=== PATIENT | male | born 1990 | race Asian ===

== ENCOUNTER 2017-01-27 01:50 | Emergency (ER) | payer OTHER ==
[~2017-01-27] VITALS: Ht 167.6 cm; Wt 72.6 kg
--- NOTE | 2017-01-27 01:58 | NUR ---
PT BIB [facility] WITH A C/O ETOH WITH GLF. PT HAS LAC ON BACK OF HEAD THAT IS ACTIVELY BLEEDING. NYSTAGMUS NOTED BILATERALLY. PT STATED THAT HE PASSED OUT BRIEFLY. PT IS ON THE MONITOR AND CONTINUOUS PULSE OX. PT'S FRIEND IS AT THE BEDSIDE.
--- NOTE | 2017-01-27 02:01 | NUR ---
PT LEFT FOR CT.
--- NOTE | 2017-01-27 02:14 | NUR ---
PT RETURNED FROM CT.
[2017-01-27] MEDS ORDERED: LIDOCAINE MPF 1%-EPI 1:200,000 30 ML VIAL IJ ONE (03:02)
--- NOTE | 2017-01-27 03:19 | NUR ---
DR. GRULLON IS AT THE BEDSIDE FOR LAC REPAIR.
--- NOTE | 2017-01-27 03:33 | NUR ---
Patient discharged to home in stable condition. Written and verbal after care instructions given. Patient verbalizes understanding of instruction. PT AMBULATED OUT WITH A STEADY GAIT. VSS.
[2017-01-27 03:35] VITALS: BP 129/75
== END 2017-01-27 03:36 | disposition home or self-care (01) ==
LOC: ER 01:53
DX: S01.01XA Laceration without foreign body of scalp, initial encounter (principal); W08.XXXA Fall from other furniture, initial encounter; Y93.89 Activity, other specified; Y92.89 Other specified places as the place of occurrence of the external cause; Y99.8 Other external cause status
CPT/HCPCS: 70450-TC; A4606; A6402; J3490; Z7610